=== PATIENT | male | born 1965 | race Caucasian/White ===

== ENCOUNTER 2017-10-14 09:30 | Inpatient (IN) ==
[2017-10-14] MEDS ORDERED: Morphine Inj 4 MG/ML Vial IV.PUSH ONE ×2 (09:58→12:38)
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
--- NOTE | 2017-10-14 10:35 | XR ---
EXAM DATE: 10/14/2017 10:23 AM EDT AGE/SEX: 52 years / Male INDICATIONS: Right upper posterior severe chest pain since last night. CLINICAL DATA: This is the patient's initial encounter. Patient reports that signs and symptoms have been present for 2 days and indicates a pain score of 10/10. MEDICAL/SURGICAL HISTORY: Hypothyroidism. None. COMPARISON: No prior exams available for comparison. FINDINGS: A single AP view of the chest demonstrates the lungs to be symmetrically aerated without evidence of mass, infiltrate or effusion. The cardiomediastinal contours are unremarkable. Osseous structures a re intact. CONCLUSION: Negative examination. Electronically signed by: Efe Angeles MD 10/14/2017 10:34 AM EDT
[2017-10-14 10:39] LABS: Baso # (Auto) 0.1 th/mm3 (0.0-0.2); Baso % (Auto) 0.5 % (0.0-2.0); Eos # (Auto) 0.1 th/mm3 (0.0-0.4); Eos % (Auto) 0.4 % (0.0-4.0); Hemoglobin 17.2 gm/dL (13.0-17.0); Lymph # (Auto) 2.6 th/mm3 (1.0-4.8); Lymph % (Auto) 17.5 % (9.0-44.0); Mean Corpuscular HGB Conc 35.2 % (32.0-36.0); Mean Corpuscular Hemoglobin 34.6 pg (27.0-34.0); Mean Corpuscular Volume 98.5 fL (80.0-100.0); Mean Platelet Volume 8.6 fL (7.0-11.0); Mono % (Auto) 6.5 % (0.0-8.0); Neut # (Auto) 11.2 th/mm3 (1.8-7.7); Neut % (Auto) 75.1 % (16.0-70.0); Platelet Count 375 th/mm3 (150-450); Red Blood Count 4.97 mil/mm3 (4.50-5.90); Red Cell Distribution Width 13.5 % (11.6-17.2); White Blood Count 14.9 th/mm3 (4.0-11.0)
--- NOTE | 2017-10-14 10:51 | XR ---
EXAM DATE: 10/14/2017 10:43 AM EDT AGE/SEX: 52 years / Male INDICATIONS: Right posterior shoulder pain since last night. CLINICAL DATA: This is the patient's initial encounter. Patient reports that signs and symptoms have been present for 2 days and indicates a pain score of 10/10. MEDICAL/SURGICAL HISTORY: Hypothyroidism. None. COMPARISON: No prior exams available for comparison. FINDINGS: Bony structures are intact and in normal alignment. Osseous density is normal. Soft tissues are unre markable. No radiopaque foreign bodies seen. CONCLUSION: Negative examination Electronically signed by: Efe Angeles MD 10/14/2017 10:49 AM EDT
[2017-10-14 11:27] LABS: Activated Partial Thrombo Time 24.5 sec (24.3-30.1); INR 1.1 Ratio; Prothrombin Time 10.8 sec (9.8-11.6)
[2017-10-14 11:37] LABS: Alanine Aminotransferase 78 U/L (12-78); Albumin 3.8 g/dL (3.4-5.0); Alkaline Phosphatase 76 U/L (45-117); Anion Gap 20 meq/L (5-15); Blood Urea Nitrogen 13 mg/dL (7-18); Calcium 8.3 mg/dL (8.5-10.1); Carbon Dioxide 16.4 meq/L (21.0-32.0); Chloride 103 meq/L (98-107); Creatine Kinase 164 U/L (39-308); Glomerular Filtration Rate 50 mL/min (>89); Glucose,Random 114 mg/dL (74-106); Lipase 2134 U/L (73-393); Sodium 139 meq/L (136-145); Total Protein 7.4 g/dL (6.4-8.2)
[2017-10-14 11:40] LABS: Potassium 3.7 meq/L (3.5-5.1)
[2017-10-14 11:53] LABS: Aspartate Aminotransferase 107 U/L (15-37)
--- NOTE | 2017-10-14 12:22 | CT ---
EXAM DATE: 10/14/2017 12:19 PM EDT AGE/SEX: 52 years / Male INDICATIONS: Head pain due to fall. CLINICAL DATA: This is the patient's initial encounter. Patient reports that signs and symptoms have been present for 1 day and indicates a pain score of 2/10. MEDICAL/SURGICAL HISTORY: Renal calculi. Pancreatitis. None. RADIATION DOSE: 56.35 CTDI (mGy) COMPARISON: No prior exams available for comparison. TECHNIQUE: CT of the head without contrast. Using automated exposure control and adjustment of the mA and/or kV according to patient size, radiation dose was kept as low as reasonably achievable to ob tain optimal diagnostic quality images. DICOM format image data is available electronically for revi ew and comparison. FINDINGS: Cerebrum: The ventricles are normal for age. No evidence of midline shift, mass lesion, hemorrhage or acute infarction. No extraaxial fluid collections are seen. Posterior Fossa: The cerebellum and brainstem are intact. The 4th ventricle is midline. The cerebe llopontine angle is unremarkable. Extracranial: The visualized portion of the orbits is intact. Skull: The calvaria is intact. No evidence of skull fracture. CONCLUSION: 1. Negative CT Head non contrast. . Electronically signed by: Efe Angeles MD 10/14/2017 12:21 PM EDT
[2017-10-14] MEDS ORDERED: Iohexol Inj 350 MG/ML 100 ML Bottle (for RAD Diag) IVCONTRAST ONE (12:25)
--- NOTE | 2017-10-14 12:26 | CT ---
EXAM DATE: 10/14/2017 12:22 PM EDT AGE/SEX: 52 years / Male INDICATIONS: Diffuse abdomen pain for one day. CLINICAL DATA: This is the patient's initial encounter. Patient reports that signs and symptoms have been present for 1 day and indicates a pain score of 9/10. MEDICAL/SURGICAL HISTORY: Pancreatitis. Renal calculi. None. ORAL CONTRAST: No oral contrast ingested. RADIATION DOSE: 5.37 CTDI (mGy) ; Combined studies COMPARISON: No prior exams available for comparison. TECHNIQUE: Multiple contiguous axial images were obtained through the abdomen and pelvis following b olus infusion of 100 ml Omnipaque 350 (iohexol) nonionic water-soluble contrast as a single exam do se. No oral contrast ingested. Using automated exposure control and adjustment of the mA and/or kV a ccording to patient size, radiation dose was kept as low as reasonably achievable to obtain optimal d iagnostic quality images. DICOM format image data is available electronically for review and compari son. FINDINGS: Lower Lungs: The visualized lower lungs are clear. Liver: The liver has a homogeneous density without space-occupying lesion. There is no dilation of th e biliary tree. Spleen: Homogeneous density without enlargement. Pancreas: There is very impressive inflammation in and around the pancreas. There is fluid dissectin g down the left paracolic gutter related to the appendix and appendicitis. I do not see a drainable f luid collection. Kidneys: Normal in size and shape. No evidence of mass or hydronephrosis. Adrenal Glands: Unremarkable. Aorta: The aorta and proximal iliac vessels are grossly unremarkable without aneurysmal dilation. Bowel/Mesentery: The bowel loops are grossly unremarkable. The cecum and sigmoid colon have a normal configuration. Abdominal Wall: Intact. Previous abdominal hernia repair Retroperitoneum: No evidence of adenopathy in the retrocrural, para-aortic, or deep pelvic regions. Bladder: Contours are smooth. Reproductive Organs: No abnormal masses or calcifications seen. Inguinal: The inguinal region is unremarkable without evidence of adenopathy. Bony Structures: Unremarkable. CONCLUSION: 1. Significant pancreatitis with impressive peripancreatic stranding and some fluid posterior to the pancreas and dissecting into the left paracolic gutter. The tail of the pancreas also shows lower de nsity than the rest the pancreas likely inflammation. Electronically signed by: Efe Angeles MD 10/14/2017 12:25 PM EDT
--- NOTE | 2017-10-14 12:27 | CT ---
EXAM DATE: 10/14/2017 12:24 PM EDT AGE/SEX: 52 years / Male INDICATIONS: Chest pains for one day. CLINICAL DATA: This is the patient's initial encounter. Patient reports that signs and symptoms have been present for 1 day and indicates a pain score of 9/10. MEDICAL/SURGICAL HISTORY: Pancreatitis. Renal calculi. None. RADIATION DOSE: 5.37 CTDI (mGy) ; Combined studies COMPARISON: No prior exams available for comparison. TECHNIQUE: Multiple contiguous axial images were obtained through the chest during bolus infusion of 100 ml Omnipaque 350 (iohexol) nonionic water-soluble contrast as a single exam dose. Images were obtained in suspended respiration using multiple row detector helical technique. Using automated ex posure control and adjustment of the mA and/or kV according to patient size, radiation dose was kept as low as reasonably achievable to obtain optimal diagnostic quality images. DICOM format image data is available electronically for review and comparison. FINDINGS: Lungs: The lungs are symmetrically aerated. No infiltrates or nodular densities are seen. Mediastinum: There is good visualization of the great vessels of the middle mediastinum. No evidenc e of mediastinal or hilar adenopathy/mass. The left vertebral artery originates from the aortic arch Pleurae: No evidence of focal thickening or pleural effusion. Axillae: Unremarkable. Bony Structures: Unremarkable. Miscellaneous: The examination was extended to include the upper abdomen, and both adrenal glands ar e normal in size and configuration. There is significant pancreatitis present with peripancreatic str anding and decreased attenuation to the tail of the pancreas. CONCLUSION: 1. Pancreatitis is again visualized. 2. Lungs are clear Electronically signed by: Efe Angeles MD 10/14/2017 12:26 PM EDT
[2017-10-14] MEDS ORDERED: Pantoprazole Inj 40 MG Vial IV.PUSH ONE (12:38)
[2017-10-14] MEDS ORDERED: Sod Chloride 0.9% Inj 1,000 ML IV.CONT SCH (12:45)
[2017-10-14] MEDS: Sod Chloride 0.9% Inj 1,000 ML IV.SIG SCH ×3 (12:52→23:46)
[2017-10-14] MEDS ORDERED: Bisacodyl 10 MG Supp RECTAL PRN (13:24)
[2017-10-14] MEDS ORDERED: Ketorolac Inj 30 MG/ML (IVP) Vial IV.PUSH PRN (13:24)
[2017-10-14] MEDS ORDERED: HYDROmorphone PF Inj 1 MG/ML Ampul IV.PUSH PRN (13:24)
[2017-10-14] MEDS ORDERED: Naloxone Inj 0.4 MG/ML Vial IV.PUSH PRN (13:24)
[2017-10-14] MEDS ORDERED: Acetaminophen 325 MG Tablet PO PRN (13:24)
[2017-10-14] MEDS ORDERED: Heparin - SQ 10,000 UNITS/ML Vial SQ SCH (13:30)
[2017-10-14] MEDS ORDERED: Haloperidol Inj 5 MG/ML Ampul IV.PUSH PRN (13:36)
[2017-10-14] MEDS ORDERED: LORazepam 1 MG Tablet PO PRN (13:36)
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
--- NOTE | 2017-10-14 14:28 | XR ---
EXAM DATE: 10/14/2017 2:26 PM EDT AGE/SEX: 52 years / Male INDICATIONS: Right distal neck pain that radiates through the right shoulder since last night. Sherlyn ent stated the pain stated after surfing. CLINICAL DATA: This is the patient's initial encounter. Patient reports that signs and symptoms have been present for 2 days and indicates a pain score of 10/10. MEDICAL/SURGICAL HISTORY: None. None. COMPARISON: No prior exams available for comparison. FINDINGS: The vertebral bodies are in normal alignment without evidence of compression deformity. The disc spac es are well preserved. No significant degenerative change seen. Bone density is normal for age. Sof t tissues are grossly intact. CONCLUSION: Normal exam Electronically signed by: Isela Boothe MD 10/14/2017 2:27 PM EDT
[2017-10-14] MEDS: Heparin - SQ 10,000 UNITS/ML Vial SQ SCH ×2 (15:08→23:44)
[2017-10-14] MEDS: Sod Chloride 0.9% Inj 1,000 ML IV.CONT SCH ×3 (15:10→23:46)
[2017-10-14] MEDS: Ketorolac Inj 30 MG/ML (IVP) Vial IV.PUSH PRN (16:39)
[2017-10-14] MEDS: HYDROmorphone PF Inj 2 MG/ML Vial IV.PUSH PRN ×2 (18:49→23:41)
[2017-10-14 20:18] LABS: Albumin 3.2 g/dL (3.4-5.0); Calcium 7.2 mg/dL (8.5-10.1); Carbon Dioxide 17.7 meq/L (21.0-32.0); Potassium 3.9 meq/L (3.5-5.1); Total Protein 5.9 g/dL (6.4-8.2)
[2017-10-14] MEDS: ALPRAZolam 0.5 MG Tablet PO SCH (21:10)
[2017-10-14 23:49] LABS: Bilirubin,Urine Negative (Negative); Clarity,Urine Hazy (Clear); Color,Urine Yellow (Yellw/Straw); Glucose,Urine (UA) Negative (Negative); Leukocyte Esterase,Urine Negative (Negative); Mucus,Urine Many /lpf (Occasional); Nitrite,Urine Negative (Negative); Specific Gravity,Urine 1.053 (1.002-1.035); Squamous Epithelial Cell,Urine <1 /hpf (0-5)
[2017-10-14 23:53] LABS: Amphetamine Screen,Urine Neg (Neg); Barbiturate Screen,Urine Neg (Neg); Cannabinoid Screen,Urine Pos (Neg); Cocaine Screen,Urine Neg (Neg)
[2017-10-14 23:58] LABS: Opiate Screen,Urine Pos (Neg)
[2017-10-15] MEDS: Sod Chloride 0.9% Inj 1,000 ML IV.CONT SCH ×8 (01:44→21:55)
[2017-10-15] MEDS: Pantoprazole Inj 40 MG Vial IV.PUSH SCH ×2 (02:01→14:11)
[2017-10-15] MEDS: Levothyroxine 125 MCG Tablet PO SCH (05:28)
[2017-10-15] MEDS: HYDROmorphone PF Inj 2 MG/ML Vial IV.PUSH PRN ×4 (05:29→21:56)
[2017-10-15] MEDS: Heparin - SQ 10,000 UNITS/ML Vial SQ SCH ×3 (06:41→22:00)
[2017-10-15 06:42] LABS: Baso % (Auto) 0.2 % (0.0-2.0); Eos % (Auto) 0.4 % (0.0-4.0); Hemoglobin 16.8 gm/dL (13.0-17.0); Lymph # (Auto) 1.1 th/mm3 (1.0-4.8); Lymph % (Auto) 8.7 % (9.0-44.0); Mean Corpuscular HGB Conc 33.7 % (32.0-36.0); Mean Corpuscular Hemoglobin 34.2 pg (27.0-34.0); Mean Corpuscular Volume 101.7 fL (80.0-100.0); Mono # (Auto) 0.9 th/mm3 (0.0-0.9); Mono % (Auto) 7.6 % (0.0-8.0); Neut # (Auto) 10.4 th/mm3 (1.8-7.7); Neut % (Auto) 83.1 % (16.0-70.0); Platelet Count 258 th/mm3 (150-450); Red Blood Count 4.92 mil/mm3 (4.50-5.90); Red Cell Distribution Width 13.4 % (11.6-17.2); White Blood Count 12.5 th/mm3 (4.0-11.0)
[2017-10-15 07:28] LABS: Albumin 2.4 g/dL (3.4-5.0); Calcium 5.8 mg/dL (8.5-10.1); Carbon Dioxide 18.4 meq/L (21.0-32.0); Potassium 4.1 meq/L (3.5-5.1); Total Protein 5.1 g/dL (6.4-8.2)
[2017-10-15] MEDS: Ketorolac Inj 30 MG/ML (IVP) Vial IV.PUSH PRN ×2 (08:45→17:45)
[2017-10-15] MEDS: Sod Chloride 0.9% Inj 1,000 ML IV.SIG SCH (08:46)
[2017-10-15] MEDS ORDERED: Calcium Gluconate Inj 2 GM in Sodium Chlor 0.9% Inj 100 ML IV.SIG ONE (11:00)
--- NOTE | 2017-10-15 11:23 | P.PNFP ---
Subjective Interval history: This is a 52 y/o male with abdominal pain n/v yesterday who was found to have pancreatitis. Today, his abdominal pain has decreased from an 8 to 5/10. His nausea has resolved. His R shoulder pain has also resolved. He has been NPO but is hungry and thirsty. He has not had a bowel movement but is passing gas. He denies diarrhea, SOB, fever, dizziness, calf pain. <Reddy Hill - 10/15/17 11:23> Results - Labs Result diagrams: 10/16/17 08:31 10/16/17 08:31 <Cheli Negro - 10/16/17 12:49> Abnormal lab results 10/15/17 10/15/17 10/16/17 Range/Units 13:43 15:16 08:31 RBC 3.92 L (4.50-5.90) mil/mm3 MCV 101.4 H (80.0-100.0) fL MCH 34.8 H (27.0-34.0) pg Neut % (Auto) 78.9 H (16.0-70.0) % Lymph # (Auto) 0.9 L (1.0-4.8) th/mm3 Chloride 110 H (98-107) meq/L Carbon Dioxide (21.0-32.0) meq/L Creatinine 1.42 H (0.60-1.30) mg/dL Estimated GFR 53 L (>89) mL/min Random Glucose 149 H (74-106) mg/dL Lactic Acid 3.3 H (0.4-2.0) mmol/L Calcium 6.5 L* (8.5-10.1) mg/dL Prot Corrected Calcium 7.5 L D (8.5-10.1) mg/dL AST 42 H (15-37) U/L Alkaline Phosphatase (45-117) U/L Total Protein 5.1 L (6.4-8.2) g/dL Albumin 2.1 L (3.4-5.0) g/dL Triglycerides (42-150) mg/dL Lipase (73-393) U/L 10/16/17 Range/Units 08:31 RBC (4.50-5.90) mil/mm3 MCV (80.0-100.0) fL MCH (27.0-34.0) pg Neut % (Auto) (16.0-70.0) % Lymph # (Auto) (1.0-4.8) th/mm3 Chloride 109 H (98-107) meq/L Carbon Dioxide 20.3 L (21.0-32.0) meq/L Creatinine (0.60-1.30) mg/dL Estimated GFR 63 L (>89) mL/min Random Glucose 124 H (74-106) mg/dL Lactic Acid (0.4-2.0) mmol/L Calcium 6.4 L* (8.5-10.1) mg/dL Prot Corrected Calcium 7.3 L* (8.5-10.1) mg/dL AST (15-37) U/L Alkaline Phosphatase 43 L (45-117) U/L Total Protein 5.3 L (6.4-8.2) g/dL Albumin 2.2 L (3.4-5.0) g/dL Triglycerides 489 H (42-150) mg/dL Lipase 766 H (73-393) U/L Short CBC 10/16/17 Range/Units 08:31 WBC 8.1 (4.0-11.0) th/mm3 Hgb 13.6 D (13.0-17.0) gm/dL Hct 39.8 (39.0-51.0) % Plt Count 163 D (150-450) th/mm3 BMP 10/15/17 10/16/17 15:16 08:31 Sodium 141 139 Potassium 4.7 3.8 D Chloride 110 H 109 H Carbon Dioxide 23.3 20.3 L BUN 15 13 Creatinine 1.42 H 1.21 Calcium 6.5 L* 6.4 L* Liver Function 10/15/17 10/16/17 Range/Units 15:16 08:31 Total Bilirubin 0.8 0.9 (0.2-1.0) mg/dL AST 42 H 35 (15-37) U/L ALT 30 24 (12-78) U/L Alkaline Phosphatase 47 43 L (45-117) U/L Albumin 2.1 L 2.2 L (3.4-5.0) g/dL <Cheli Negro - 10/16/17 12:49> Abnormal lab results 10/14/17 10/14/17 10/14/17 Range/Units 10:00 14:50 18:07 WBC (4.0-11.0) th/mm3 MCV (80.0-100.0) fL MCH (27.0-34.0) pg Neut % (Auto) (16.0-70.0) % Lymph % (Auto) (9.0-44.0) % Neut # (Auto) (1.8-7.7) th/mm3 Chloride (98-107) meq/L Carbon Dioxide 16.4 L 17.7 L (21.0-32.0) meq/L Anion Gap 20 H (5-15) meq/L Creatinine 1.48 H (0.60-1.30) mg/dL Estimated GFR 50 L 63 L (>89) mL/min Random Glucose 114 H 117 H (74-106) mg/dL Calcium 8.3 L 7.2 L* D (8.5-10.1) mg/dL Prot Corrected Calcium 7.8 L (8.5-10.1) mg/dL AST 107 H 67 H (15-37) U/L Lactate Dehydrogenase (87-241) U/L Troponin I Less than 0.02 L Less than 0.02 L (0.02-0.05) ng/mL Total Protein 5.9 L D (6.4-8.2) g/dL Albumin 3.2 L D (3.4-5.0) g/dL Triglycerides (42-150) mg/dL Lipase 2134 H (73-393) U/L Urine Clarity (Clear) Ur Specific Magna (1.002-1.035) Urine Protein (Neg-Trace) mg/dL Urine Mucus (Occasional) /lpf Urine Opiates Screen (Neg) U Benzodiazepines Scrn (Neg) U Cannabinoids Screen (Neg) 10/14/17 10/14/17 10/14/17 Range/Units 20:57 23:00 23:00 WBC (4.0-11.0) th/mm3 MCV (80.0-100.0) fL MCH (27.0-34.0) pg Neut % (Auto) (16.0-70.0) % Lymph % (Auto) (9.0-44.0) % Neut # (Auto) (1.8-7.7) th/mm3 Chloride (98-107) meq/L Carbon Dioxide (21.0-32.0) meq/L Anion Gap (5-15) meq/L Creatinine (0.60-1.30) mg/dL Estimated GFR (>89) mL/min Random Glucose (74-106) mg/dL Calcium (8.5-10.1) mg/dL Prot Corrected Calcium (8.5-10.1) mg/dL AST (15-37) U/L Lactate Dehydrogenase (87-241) U/L Troponin I Less than 0.02 L (0.02-0.05) ng/mL Total Protein (6.4-8.2) g/dL Albumin (3.4-5.0) g/dL Triglycerides (42-150) mg/dL Lipase (73-393) U/L Urine Clarity Hazy H (Clear) Ur Specific Magna 1.053 H (1.002-1.035) Urine Protein 30 H (Neg-Trace) mg/dL Urine Mucus Many H (Occasional) /lpf Urine Opiates Screen Pos H (Neg) U Benzodiazepines Scrn Pos H (Neg) U Cannabinoids Screen Pos H (Neg) 10/15/17 10/15/17 Range/Units 04:48 04:48 WBC 12.5 H (4.0-11.0) th/mm3 MCV 101.7 H (80.0-100.0) fL MCH 34.2 H (27.0-34.0) pg Neut % (Auto) 83.1 H (16.0-70.0) % Lymph % (Auto) 8.7 L (9.0-44.0) % Neut # (Auto) 10.4 H (1.8-7.7) th/mm3 Chloride 110 H (98-107) meq/L Carbon Dioxide 18.4 L (21.0-32.0) meq/L Anion Gap (5-15) meq/L Creatinine 1.44 H (0.60-1.30) mg/dL Estimated GFR 52 L (>89) mL/min Random Glucose 138 H (74-106) mg/dL Calcium 5.8 L* D (8.5-10.1) mg/dL Prot Corrected Calcium 6.7 L* D (8.5-10.1) mg/dL AST 52 H (15-37) U/L Lactate Dehydrogenase 273 H (87-241) U/L Troponin I (0.02-0.05) ng/mL Total Protein 5.1 L D (6.4-8.2) g/dL Albumin 2.4 L D (3.4-5.0) g/dL Triglycerides 1683 H (42-150) mg/dL Lipase 2025 H (73-393) U/L Urine Clarity (Clear) Ur Specific Magna (1.002-1.035) Urine Protein (Neg-Trace) mg/dL Urine Mucus (Occasional) /lpf Urine Opiates Screen (Neg) U Benzodiazepines Scrn (Neg) U Cannabinoids Screen (Neg) Short CBC 10/15/17 Range/Units 04:48 WBC 12.5 H (4.0-11.0) th/mm3 Hgb 16.8 (13.0-17.0) gm/dL Hct 50.0 (39.0-51.0) % Plt Count 258 D (150-450) th/mm3 BMP 10/14/17 10/14/17 10/15/17 10:00 18:07 04:48 Sodium 139 138 141 Potassium 3.7 3.9 4.1 Chloride 103 105 110 H Carbon Dioxide 16.4 L 17.7 L 18.4 L BUN 13 9 11 Creatinine 1.48 H 1.22 1.44 H Calcium 8.3 L 7.2 L* D 5.8 L* D Cardiac Enzymes 10/14/17 10/14/17 10/14/17 Range/Units 10:00 14:50 20:57 Total Creatine Kinase 164 (39-308) U/L CK-MB (CK-2) Less than 1.0 (0.5-3.6) ng/mL Troponin I Less than 0.02 L Less than 0.02 L Less than 0.02 L (0.02-0.05) ng/mL Liver Function 10/14/17 10/14/17 10/15/17 Range/Units 10:00 18:07 04:48 Total Bilirubin 0.6 0.8 0.9 (0.2-1.0) mg/dL AST 107 H 67 H 52 H (15-37) U/L ALT 78 57 39 (12-78) U/L Alkaline Phosphatase 76 62 49 (45-117) U/L Albumin 3.8 3.2 L D 2.4 L D (3.4-5.0) g/dL Urine 10/14/17 Range/Units 23:00 Urine Color Yellow (Yellw/Straw) Urine Clarity Hazy H (Clear) Urine pH 5.0 (5.0-8.5) Ur Specific Magna 1.053 H (1.002-1.035) Urine Protein 30 H (Neg-Trace) mg/dL Urine Glucose (UA) Negative (Negative) mg/dL <Reddy Hill - 10/15/17 11:23> - Imaging Impressions Cervical Spine X-Ray 10/14/17 00:00 CONCLUSION: Normal exam Abdomen/Pelvis CT 10/14/17 09:55 CONCLUSION: 1. Significant pancreatitis with impressive peripancreatic stranding and some fluid posterior to the pancreas and dissecting into the left paracolic gutter. The tail of the pancreas also shows lower density than the rest the pancreas likely inflammation. Chest CT 10/14/17 09:55 CONCLUSION: 1. Pancreatitis is again visualized. 2. Lungs are clear Head CT 10/14/17 10:21 CONCLUSION: 1. Negative CT Head non contrast. . <Reddy Hill - 10/15/17 11:23> Physical Exam Vital signs: Vital Signs 10/15/17 16:00 10/15/17 18:30 10/15/17 20:00 Temperature 97.2 F L 98.7 F Pulse Rate 113 H 95 H Respiratory Rate 18 18 20 Blood Pressure 124/75 118/71 Pulse Oximetry 95 96 10/16/17 00:00 10/16/17 04:00 10/16/17 08:00 Temperature 98.6 F 97.9 F 97.6 F Pulse Rate 103 H 92 H 106 H Respiratory Rate 18 20 18 Blood Pressure 112/67 117/80 127/73 Pulse Oximetry 95 96 95 Intake & Output 10/15/17 10/16/17 10/16/17 18:59 06:59 18:59 Intake Total 4080 / 4080 3383 / 3383 1000 / 1000 Output Total 450 / 450 250 / 250 Balance 3630 / 3630 3133 / 3133 1000 / 1000 Intake: IV 3120 / 3120 2000 / 2000 1000 / 1000 NS Inj 1,000 ML @ 200 mls/hr IV 3000 / 3000 2000 / 2000 1000 / 1000 .CONT .Q5H [facility] Rx#:[id number] Calcium Gluconate Inj 2 GM In 120 / 120 NS Inj 100 ML @ 120 mls/hr IV. SIG ONCE ONE Rx#:[id number] Oral 960 / 960 1383 / 1383 Output: Urine 450 / 450 250 / 250 Other: # Voids 1 6 Date of Last Bowel Movement 10/15/17 10/15/17 # Bowel Movements 1 <Cheli Negro - 10/16/17 12:49> Vital Signs 10/14/17 13:00 10/14/17 15:02 10/14/17 16:48 Temperature 97.8 F Pulse Rate 72 71 119 H Respiratory Rate 18 18 20 Blood Pressure 122/78 132/78 167/107 H Pulse Oximetry 100 10/14/17 20:00 10/14/17 22:00 10/15/17 00:00 Temperature 98.2 F 98.4 F Pulse Rate 130 H 130 H Respiratory Rate 16 18 Blood Pressure 151/94 H 170/80 H 131/59 L Pulse Oximetry 95 94 L 10/15/17 04:00 10/15/17 08:00 Temperature 97.9 F 97.2 F L Pulse Rate 104 H 105 H Respiratory Rate 18 18 Blood Pressure 115/82 120/74 Pulse Oximetry 95 94 L Intake & Output 10/14/17 10/15/17 10/15/17 18:59 06:59 18:59 Intake Total 2000 / 2000 4000 / 4000 1000 / 1000 Output Total 450 / 450 Balance 1999 / 1999 3550 / 3550 1000 / 1000 Weight 93.18 kg Intake: IV 2000 / 2000 4000 / 4000 1000 / 1000 NS Inj 1,000 ML @ 350 mls/hr IV 1000 / 1000 1999 / 2000 1000 / 1000 .CONT .Q2H52M [facility] Rx#:[id number] NS Inj 1,000 ML @ Wide Open IV. 1000 / 1000 1999 / 1999 SIG BOLUS [facility] Rx#:[id number] Output: Urine 450 / 450 Other: # Voids 1 Weight On Admission 93.18 kg <Reddy Hill - 10/15/17 11:23> - Constitutional mild distress, average body habitus <Reddy Hill - 10/15/17 11:23> - Routine HEENT Exam Head: Present: normocephalic, atraumatic <Reddy Hill 10/15/17 11:23> ENT: Present: mucous membranes moist <Reddy Hill 10/15/17 11:23> - Routine Respiratory Exam Present: CTA bilaterally. Absent: rales, rhonchi, crackles <Reddy Hill 10/15/17 11:23> - Routine Cardiovascular Exam Present: RRR, S1, S2. Absent: murmur, gallop, rubs <Reddy Hill 11:23> - Routine Abdominal Exam Present: soft (slightly bloated appearance; active bowel sounds) <Reddy Hill 10/15/17 11:23> - Routine Skin Exam Present: intact <Reddy Hill 10/15/17 11:23> - Routine Neurological Exam Present: alert, oriented X3 <Reddy Hill 10/15/17 11:23> - Routine Psychiatric Exam Present: normal affect, normal thought process <Reddy Hill 10/15/17 11: 23> Assessment and Plan - Assessment (1) Acute pancreatitis Code(s): K85.90 - Acute pancreatitis without necrosis or infection, unspecified Status: Acute Plan: Abdominal pain with hx of heavy alcohol use, labs as below alcohol-induced vs. hyperTG-induced Triglycerides: 1683 discussed with GI--prior to initiating statin/apheresis therapy, will continue to monitor with IVF + analgesia and reeval in 2 days Calcium: 8.3-->5.8 will replete w/ Ca gluconate 2gm IV in NS Lipase: 2133-->2024 WBC: 14.9-->12.5 LDH: 273 Diet will be advanced to clear liquids today and will be further advanced as tolerated IVF - continue NS at 350ml/hr -Continue Zofran 4mg Q6hr PRN for nausea/vomit -Acetaminophen 650mg Q6hr PRN for mild pain -Toradol 15mg Q6hr PRN for moderate pain -Dilaudid 1mg Q6hr PRN for breakthrough severe pain -Will trend Troponin to r/o cardiac etiology for pain + EKG ordered -Will repeat CMP @ 3pm; CBC, CMP, LDH, LFT's, Lipase, TG, Ca tomorrow CT abdomen w/ contrast: pancreatitis, no pseudocyst, no evidence of necrosis-- radiologist reeval'd and ensures there is no underlying malignancy, just to monitor for signs of hemorrhage and re-CT if symptomatic or no improvement (2) Arm pain, right Code(s): M79.601 - Pain in right arm Status: Acute Plan: -Continue analgesia as above -Resolved (3) Hypothyroidism Code(s): E03.9 - Hypothyroidism, unspecified Status: Acute Plan: Continue home meds (4) ROBERTH (acute kidney injury) Code(s): N17.9 - Acute kidney failure, unspecified Status: Acute Plan: -Dehydration vs. underlying CKD -Creatinine 1.48-->1.44 -UA revealed proteinuria, will continue with IVF and avoidance of nephrotoxins -continue to monitor (5) Smokeless tobacco use Code(s): Z72.0 - Tobacco use Status: Acute Plan: Continue nicotine patch (6) Drug abuse, marijuana Code(s): F12.10 - Cannabis abuse, uncomplicated Status: Acute Plan: Urine tox unrevealing, +MJ (admitted to); +opioid,benzo (given in hospital) (7) Alcohol abuse Code(s): F10.10 - Alcohol abuse, uncomplicated Status: Acute Plan: No evidence of withdrawal will continue to monitor, however, likely past withdrawal phase (8) DVT prophylaxis Status: Acute Plan: -Continue Heparin 5000units SQ Q8hr -Encourage ambulation (9) Nutrition, metabolism, and development symptoms Code(s): R63.8 - Other symptoms and signs concerning food and fluid intake Status: Acute Plan: -Nutrition: advance diet to clear liquids today with further advancement as tolerated -IVF: continue NS @ 350mls/hr -Electrolytes: Replete Ca Gluconate 2gm IV in NS with f/u level; further replete as needed -GI prophylaxis: Pantoprazole; Milk of Magnesia PRN for constipation <Reddy Hill - 10/15/17 11:59> - Attending Attestation Patient seen, examined, and discussed with resident team and medical student on 10/15/17. I agree with assessment and management as documented and discussed with me. I verify that information documented in subjective, objective, and assessment/ plan are accurate and I personally performed subjective and physical exam. Pt reports abdominal pain is improving. No nausea. Clear liquids initiated, advance as tolerated. R arm / neck pain has resolved. <Cheli Negro - 10/16/17 12:49>
--- NOTE | 2017-10-15 12:14 | ECG ---
Date Performed: 10/14/2017 Time Performed: 10:01:01 PTAGE: 52 years EKG: Sinus rhythm WITH OCCASIONAL VENTRICULAR PREMATURE COMPLEXES LEFT ANTERIOR FASCICULAR BLOCK ABNORMAL ECG NO PREVIOUS TRACING DOCTOR: Kenny Cash Interpretating Date/Time 10/15/2017 12:10:46
[2017-10-15 17:02] LABS: Albumin 2.1 g/dL (3.4-5.0); Calcium 6.5 mg/dL (8.5-10.1); Carbon Dioxide 23.3 meq/L (21.0-32.0); Potassium 4.7 meq/L (3.5-5.1); Total Protein 5.1 g/dL (6.4-8.2)
[2017-10-15] MEDS: ALPRAZolam 0.5 MG Tablet PO SCH (21:10)
[2017-10-16] MEDS: Ketorolac Inj 30 MG/ML (IVP) Vial IV.PUSH PRN ×2 (00:46→06:18)
[2017-10-16] MEDS: Pantoprazole Inj 40 MG Vial IV.PUSH SCH (01:51)
[2017-10-16] MEDS: Sod Chloride 0.9% Inj 1,000 ML IV.CONT SCH ×2 (03:37→09:27)
[2017-10-16] MEDS: HYDROmorphone PF Inj 2 MG/ML Vial IV.PUSH PRN ×2 (04:32→09:23)
[2017-10-16] MEDS: Levothyroxine 125 MCG Tablet PO SCH (06:14)
[2017-10-16] MEDS: Heparin - SQ 10,000 UNITS/ML Vial SQ SCH (06:15)
[2017-10-16 08:51] LABS: Baso % (Auto) 0.5 % (0.0-2.0); Eos # (Auto) 0.3 th/mm3 (0.0-0.4); Eos % (Auto) 3.3 % (0.0-4.0); Hematocrit 39.8 % (39.0-51.0); Hemoglobin 13.6 gm/dL (13.0-17.0); Lymph # (Auto) 0.9 th/mm3 (1.0-4.8); Lymph % (Auto) 11.5 % (9.0-44.0); Mean Corpuscular HGB Conc 34.3 % (32.0-36.0); Mean Corpuscular Hemoglobin 34.8 pg (27.0-34.0); Mean Corpuscular Volume 101.4 fL (80.0-100.0); Mean Platelet Volume 8.6 fL (7.0-11.0); Mono # (Auto) 0.5 th/mm3 (0.0-0.9); Mono % (Auto) 5.8 % (0.0-8.0); Neut # (Auto) 6.4 th/mm3 (1.8-7.7); Neut % (Auto) 78.9 % (16.0-70.0); Platelet Count 163 th/mm3 (150-450); Red Blood Count 3.92 mil/mm3 (4.50-5.90); Red Cell Distribution Width 13.9 % (11.6-17.2); White Blood Count 8.1 th/mm3 (4.0-11.0)
[2017-10-16 09:24] LABS: Albumin 2.2 g/dL (3.4-5.0); Calcium 6.4 mg/dL (8.5-10.1); Carbon Dioxide 20.3 meq/L (21.0-32.0); Potassium 3.8 meq/L (3.5-5.1); Total Protein 5.3 g/dL (6.4-8.2)
--- NOTE | 2017-10-16 09:53 | P.PNFP ---
Subjective Interval history: This is a 52 y/o male with pancreatitis, admitted on 10/14/17. Today, his abdominal pain remains decreased at 4-5/10 after initiating clear liquid diet. He has no nausea. He is having formed bowel movements without looseness, blood or black tarry stool. He is complaining of R shoulder pain that is subscapular with radiation down elbow and 4th and 5th digit, associated with paresthesia. He notes it worsened with neck rotation to the R. Thinks he may have slept on it. He has been ambulating. He denies SOB, fever, dizziness, calf pain. <Reddy Hill - 10/16/17 11:18> Results - Labs Result diagrams: 10/16/17 08:31 10/16/17 08:31 <Cheli Negro - 10/16/17 15:27> Abnormal lab results 10/15/17 10/16/17 10/16/17 Range/Units 15:16 08:31 08:31 RBC 3.92 L (4.50-5.90) mil/mm3 MCV 101.4 H (80.0-100.0) fL MCH 34.8 H (27.0-34.0) pg Neut % (Auto) 78.9 H (16.0-70.0) % Lymph # (Auto) 0.9 L (1.0-4.8) th/mm3 Chloride 110 H 109 H (98-107) meq/L Carbon Dioxide 20.3 L (21.0-32.0) meq/L Creatinine 1.42 H (0.60-1.30) mg/dL Estimated GFR 53 L 63 L (>89) mL/min Random Glucose 149 H 124 H (74-106) mg/dL Calcium 6.5 L* 6.4 L* (8.5-10.1) mg/dL Prot Corrected Calcium 7.5 L D 7.3 L* (8.5-10.1) mg/dL AST 42 H (15-37) U/L Alkaline Phosphatase 43 L (45-117) U/L Total Protein 5.1 L 5.3 L (6.4-8.2) g/dL Albumin 2.1 L 2.2 L (3.4-5.0) g/dL Triglycerides 489 H (42-150) mg/dL Lipase 766 H (73-393) U/L Short CBC 10/16/17 Range/Units 08:31 WBC 8.1 (4.0-11.0) th/mm3 Hgb 13.6 D (13.0-17.0) gm/dL Hct 39.8 (39.0-51.0) % Plt Count 163 D (150-450) th/mm3 BMP 10/15/17 10/16/17 15:16 08:31 Sodium 141 139 Potassium 4.7 3.8 D Chloride 110 H 109 H Carbon Dioxide 23.3 20.3 L BUN 15 13 Creatinine 1.42 H 1.21 Calcium 6.5 L* 6.4 L* Liver Function 10/15/17 10/16/17 Range/Units 15:16 08:31 Total Bilirubin 0.8 0.9 (0.2-1.0) mg/dL AST 42 H 35 (15-37) U/L ALT 30 24 (12-78) U/L Alkaline Phosphatase 47 43 L (45-117) U/L Albumin 2.1 L 2.2 L (3.4-5.0) g/dL <Cheli Negro - 10/16/17 15:27> Abnormal lab results 10/15/17 10/15/17 10/16/17 Range/Units 13:43 15:16 08:31 RBC 3.92 L (4.50-5.90) mil/mm3 MCV 101.4 H (80.0-100.0) fL MCH 34.8 H (27.0-34.0) pg Neut % (Auto) 78.9 H (16.0-70.0) % Lymph # (Auto) 0.9 L (1.0-4.8) th/mm3 Chloride 110 H (98-107) meq/L Carbon Dioxide (21.0-32.0) meq/L Creatinine 1.42 H (0.60-1.30) mg/dL Estimated GFR 53 L (>89) mL/min Random Glucose 149 H (74-106) mg/dL Lactic Acid 3.3 H (0.4-2.0) mmol/L Calcium 6.5 L* (8.5-10.1) mg/dL Prot Corrected Calcium 7.5 L D (8.5-10.1) mg/dL AST 42 H (15-37) U/L Alkaline Phosphatase (45-117) U/L Total Protein 5.1 L (6.4-8.2) g/dL Albumin 2.1 L (3.4-5.0) g/dL Triglycerides (42-150) mg/dL Lipase (73-393) U/L 10/16/17 Range/Units 08:31 RBC (4.50-5.90) mil/mm3 MCV (80.0-100.0) fL MCH (27.0-34.0) pg Neut % (Auto) (16.0-70.0) % Lymph # (Auto) (1.0-4.8) th/mm3 Chloride 109 H (98-107) meq/L Carbon Dioxide 20.3 L (21.0-32.0) meq/L Creatinine (0.60-1.30) mg/dL Estimated GFR 63 L (>89) mL/min Random Glucose 124 H (74-106) mg/dL Lactic Acid (0.4-2.0) mmol/L Calcium 6.4 L* (8.5-10.1) mg/dL Prot Corrected Calcium 7.3 L* (8.5-10.1) mg/dL AST (15-37) U/L Alkaline Phosphatase 43 L (45-117) U/L Total Protein 5.3 L (6.4-8.2) g/dL Albumin 2.2 L (3.4-5.0) g/dL Triglycerides 489 H (42-150) mg/dL Lipase 766 H (73-393) U/L Short CBC 10/16/17 Range/Units 08:31 WBC 8.1 (4.0-11.0) th/mm3 Hgb 13.6 D (13.0-17.0) gm/dL Hct 39.8 (39.0-51.0) % Plt Count 163 D (150-450) th/mm3 BMP 18 10/16/17 15:16 08:31 Sodium 141 139 Potassium 4.7 3.8 D Chloride 110 H 109 H Carbon Dioxide 23.3 20.3 L BUN 15 13 Creatinine 1.42 H 1.21 Calcium 6.5 L* 6.4 L* Liver Function 18 10/16/17 Range/Units 15:16 08:31 Total Bilirubin 0.8 0.9 (0.2-1.0) mg/dL AST 42 H 35 (15-37) U/L ALT 30 24 (12-78) U/L Alkaline Phosphatase 47 43 L (45-117) U/L Albumin 2.1 L 2.2 L (3.4-5.0) g/dL <Reddy Hill - 10/16/17 09:53> Physical Exam Vital signs: Vital Signs 10/15/17 16:00 10/15/17 18:30 10/15/17 20:00 Temperature 97.2 F L 98.7 F Pulse Rate 113 H 95 H Respiratory Rate 18 18 20 Blood Pressure 124/75 118/71 Pulse Oximetry 95 96 10/16/17 00:00 10/16/17 04:00 10/16/17 08:00 Temperature 98.6 F 97.9 F 97.6 F Pulse Rate 103 H 92 H 106 H Respiratory Rate 18 20 18 Blood Pressure 112/67 117/80 127/73 Pulse Oximetry 95 96 95 10/16/17 09:00 Temperature Pulse Rate 106 H Respiratory Rate Blood Pressure Pulse Oximetry Intake & Output 10/15/17 10/16/17 10/16/17 18:59 06:59 18:59 Intake Total 4080 / 4080 3383 / 3383 1000 / 1000 Output Total 450 / 450 250 / 250 Balance 3630 / 3630 3133 / 3133 1000 / 1000 Intake: IV 3120 / 3120 2000 / 2000 1000 / 1000 NS Inj 1,000 ML @ 200 mls/hr IV 3000 / 3000 2000 / 2000 1000 / 1000 .CONT .Q5H [facility] Rx#:[id number] Calcium Gluconate Inj 2 GM In 120 / 120 NS Inj 100 ML @ 120 mls/hr IV. SIG ONCE ONE Rx#:[id number] Oral 960 / 960 1383 / 1383 Output: Urine 450 / 450 250 / 250 Other: # Voids 1 6 Date of Last Bowel Movement 10/15/17 10/15/17 # Bowel Movements 1 <Cheli Negro - 10/16/17 15:27> Vital Signs 10/15/17 10:50 10/15/17 12:00 10/15/17 16:00 Temperature 98.0 F 97.2 F L Pulse Rate 107 H 113 H Respiratory Rate 18 18 18 Blood Pressure 121/66 124/75 Pulse Oximetry 95 95 10/15/17 18:30 10/15/17 20:00 10/16/17 00:00 Temperature 98.7 F 98.6 F Pulse Rate 95 H 103 H Respiratory Rate 18 18 Blood Pressure 118/71 112/67 Pulse Oximetry 96 95 10/16/17 04:00 Temperature 97.9 F Pulse Rate 92 H Respiratory Rate 20 Blood Pressure 117/80 Pulse Oximetry 96 Intake & Output 10/15/17 10/16/17 10/16/17 18:59 06:59 18:59 Intake Total 4080 / 4080 3383 / 3383 1000 / 1000 Output Total 450 / 450 250 / 250 Balance 3630 / 3630 3133 / 3133 1000 / 1000 Intake: IV 3120 / 3120 2000 / 2000 1000 / 1000 NS Inj 1,000 ML @ 200 mls/hr IV 3000 / 3000 2000 / 2000 1000 / 1000 .CONT .Q5H [facility] Rx#:[id number] Calcium Gluconate Inj 2 GM In 120 / 120 NS Inj 100 ML @ 120 mls/hr IV. SIG ONCE ONE Rx#:[id number] Oral 960 / 960 1383 / 1383 Output: Urine 450 / 450 250 / 250 Other: # Voids 1 6 Date of Last Bowel Movement 10/15/17 10/15/17 # Bowel Movements 1 <Reddy Hill 10/16/17 09:53> - Constitutional mild distress <Reddy Hill 10/16/17 10:09> - Routine HEENT Exam Head: Present: normocephalic, atraumatic <Reddy Hill 10/16/17 10:09> Eye: Absent: scleral injection <Reddy Hill 10/16/17 10:09> ENT: Present: mucous membranes moist <Reddy Hill 10/16/17 10:09> - Routine Neck Exam Present: supple, full ROM <Reddy Hill 10/16/17 11:18> - Routine Respiratory Exam Present: CTA bilaterally. Absent: rales, rhonchi, crackles <Reddy Hill 10/16/17 10:09> - Routine Cardiovascular Exam Present: RRR, S1, S2. Absent: murmur, gallop, rubs <SergioReddy 10:09> - Routine Abdominal Exam Present: soft, normoactive bowel sounds, tenderness (mild at epigastrium). Absent: Mckenzie Overton's sign, Sim's sign <SergioReddy 10/16/17 10:09> - Routine Extremities Exam Present: full ROM (No discoloration or swelling noted in posteior R shoulder or arm; Full ROM to R shoulder and elbow; Strength to abduction of shoulder, flexion/extension at elbow, and finger abduction = 5/5; sensation intact). Absent: cyanosis, clubbing, edema <Sergio,Reddy 10/16/17 10:09> - Routine Skin Exam Present: intact, dry. Absent: erythema, petechiae <Sergio,Reddy 10/16/17 10:09> - Routine Neurological Exam Present: alert, oriented X3 <Sergio,Reddy 10/16/17 10:09> - Routine Psychiatric Exam Present: normal affect, normal thought process <Sergio,Bryce 10/16/17 10: 09> Assessment and Plan - Assessment (1) Acute pancreatitis Code(s): K85.90 - Acute pancreatitis without necrosis or infection, unspecified Status: Acute Plan: Abdominal pain with hx of heavy alcohol use, labs as below alcohol-induced vs. hyperTG-induced Triglycerides: Trending down, 1683--> 489; continue to monitor Calcium: 8.3-->6.7-->7.3 following repletion; continue to monitor Lipase: Trending down, 2134-->2025-->766; continue to monitor WBC: Trending down, 14.9-->12.5-->8.1 LDH: 273 on 10/15 Diet: tolerated clear diet yesterday, will be advanced to soft solids today with monitoring for tolerance IVF - continue NS at 200ml/hr with plans to stop later today -Continue Zofran 4mg Q6hr PRN for nausea/vomit -Acetaminophen 650mg Q6hr PRN for mild pain -Toradol 15mg Q6hr PRN for moderate pain -Dilaudid 1mg Q6hr PRN for breakthrough severe pain -Repeat CMP, CBC, CMP, LDH, LFT's, Lipase, TG, Ca if still here tomorrow (2) Arm pain, right Code(s): M79.601 - Pain in right arm Status: Acute Plan: Noted to b (3) Hypothyroidism Code(s): E03.9 - Hypothyroidism, unspecified Status: Acute Plan: Continue home medication (4) ROBERTH (acute kidney injury) Code(s): N17.9 - Acute kidney failure, unspecified Status: Acute Plan: -Dehydration vs. underlying CKD -Creatinine improved, 1.48-->1.44-->1.21 -continue to monitor (5) Smokeless tobacco use Code(s): Z72.0 - Tobacco use Status: Acute Plan: Continue nicotine patch (6) Drug abuse, marijuana Code(s): F12.10 - Cannabis abuse, uncomplicated Status: Acute Plan: Urine tox unrevealing, +MJ (admitted to); +opioid,benzo (given in hospital) (7) Alcohol abuse Code(s): F10.10 - Alcohol abuse, uncomplicated Status: Acute Plan: No evidence of withdrawal will continue to monitor on CIWA, however, likely past withdrawal phase (8) DVT prophylaxis Status: Acute Plan: -Continue Heparin 5000units SQ Q8hr -Encourage ambulation (9) Nutrition, metabolism, and development symptoms Code(s): R63.8 - Other symptoms and signs concerning food and fluid intake Status: Acute Plan: -Nutrition: advance diet to soft solids today -IVF: continue NS 200mls/hr + encourage PO intake with subsequent cessation of IVF -Electrolytes: Ca improved after Ca Gluconate; continue to monitor -GI prophylaxis: Pantoprazole; Milk of Magnesia PRN for constipation <Reddy Hill - 10/16/17 11:24> - Attending Attestation Patient seen and examined, discussed with residents and medical student on 2017. I agree with assessment and management as documented and discussed with me. I verify that components of subjective, objective, assessment/plan are accurate as documented by the medical student and I personally performed physical exam. Pt tolerating PO. Abdominal pain is improved. Discharge home today. <Cheli Negro - 10/16/17 15:27>
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
== END 2017-10-16 18:21 | disposition home or self-care (01) ==
LOC: NEPC 09:30 → NEDA 12:57 → N06 16:16 → UNDODISIN 10-16 18:00
PROVIDERS: ADMIT Family Medicine; ATTEND Family Medicine